=== PATIENT | male | born 1970 | race Two or more races ===

== ENCOUNTER 2022-01-01 10:04 | Emergency (ER) | payer OTHER ==
[~2022-01-01] VITALS: Ht 170.2 cm; Wt 72.6 kg
[2022-01-01 10:33] VITALS: BP 160/110
[2022-01-01] MEDS ORDERED: KETOROLAC TROMETHAMINE INJ 60 MG/2 ML VIAL IM ONE (11:00)
[2022-01-01] MEDS ORDERED: GUAIFENESIN/D-METHORPHAN HB 5 ML UDC PO ONE (11:00)
--- NOTE | 2022-01-01 11:05 | NUR ---
COVID SWAB DONE AND SENT TO LAB
[2022-01-01] MEDS ORDERED: GUAIFENESIN/D-METHORPHAN HB 5 ML UDC ONE (11:08)
[2022-01-01] MEDS ORDERED: KETOROLAC TROMETHAMINE INJ 30 MG/ML VIAL ONE (11:09)
--- NOTE | 2022-01-01 11:09 | NUR ---
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
[2022-01-01] MEDS ORDERED: BENZ-13 PO (11:41)
[2022-01-01] MEDS ORDERED: IBUP-1957 PO (11:41)
[2022-01-01] MEDS ORDERED: PSEU120T83 PO (11:41)
[2022-01-01] MEDS ORDERED: GUAI1TBM19 PO (11:41)
--- NOTE | 2022-01-01 11:59 | NUR ---
Patient discharged to home in stable condition. Written and verbal after care instructions given. Patient verbalizes understanding of instruction.
== END 2022-01-01 12:00 | disposition home or self-care (01) ==
LOC: ER 10:20
DX: U07.1 COVID-19 (principal); M79.10 Myalgia, unspecified site
CPT/HCPCS: 71045; 87426; 96372; 99284; C9803; J1885

== ENCOUNTER 2023-03-27 16:56 | Emergency (ER) | payer OTHER ==
[~2023-03-27] VITALS: Ht 170.2 cm; Wt 40.8 kg
[~2023-03-27 16:56] MED LIST: BENZ-13 PO; GUAI1TBM19 PO; IBUP-1957 PO; PSEU120T83 PO
[2023-03-27] MEDS ORDERED: NALO4SPR BNOSTRILS (22:16)
[2023-03-27 22:31] VITALS: BP 128/85; TEMP 98; O2SAT 97
== END 2023-03-27 22:31 | disposition home or self-care (01) ==
LOC: ER 16:59
DX: R42 Dizziness and giddiness (principal); T40.601A Poisoning by unspecified narcotics, accidental (unintentional), initial encounter; Y92.89 Other specified places as the place of occurrence of the external cause